=== PATIENT | female | born 1990 | race Caucasian/White ===

== ENCOUNTER 2017-12-27 19:21 | Emergency (ER) | payer BC, MEDICAID ==
[2017-12-27] MEDS: ACETAMINOPHEN 500 MG TAB PO (20:24)
== END 2017-12-27 20:54 | disposition home or self-care (01) ==
LOC: FTE 19:21
DX: H92.01 Otalgia, right ear (principal); E10.9 Type 1 diabetes mellitus without complications; I10 Essential (primary) hypertension; Z79.4 Long term (current) use of insulin
CPT/HCPCS: 99283